=== PATIENT | female | born 1945 | race Caucasian/White ===

== ENCOUNTER 2017-06-26 15:01 | Emergency (ER) | payer MEDICARE, OTHER ==
[~2017-06-26] VITALS: Ht 162.6 cm; Wt 68.9 kg
[~2017-06-26 15:01] MED LIST: ACET-1467 PO; BONIVA; DICY20TA11 PO; FLUT16SP NS; LORA0.5T PO; MERC50TA PO; OMEGA 3 PO; OMEP40CA37 PO; PRED20TA PO; REMICADE; VITAMIN D PO
[2017-06-26] MEDS ORDERED: IV NORMAL SALINE 1000 ML BAG IV ONE (15:30)
[2017-06-26 15:51] LABS: BASOPHILS # (AUTO) 0.1 K/uL (0.0-8.0); BASOPHILS % (AUTO) 2.2 % (0.0-2.0); EOSINOPHILS # (AUTO) 0.1 K/uL (0.0-0.7); EOSINOPHILS % (AUTO) 1.2 % (0.0-7.0); HEMATOCRIT 35.8 % (37-47); HEMOGLOBIN 11.9 G/DL (12.0-16.0); LYMPHOCYTES # (AUTO) 0.3 K/UL (0.8-4.8); LYMPHOCYTES % (AUTO) 6.8 % (20.5-51.5); MEAN CORPUSCULAR HEMOGLOBIN 32.3 UUG (27.0-31.0); MEAN CORPUSCULAR HGB CONC 33 g/dL (32.0-37.0); MEAN CORPUSCULAR VOLUME 97.1 FL (81.0-99.0); MONOCYTES # (AUTO) 0.5 K/UL (0.1-1.30); MONOCYTES % (AUTO) 12.7 % (0.0-11.0); NEUTROPHILS # (AUTO) 3.2 K/UL (1.8-8.9); NEUTROPHILS % (AUTO) 77.1 % (38.5-71.5); PLATELET COUNT (AUTO) 242 K/UL (150-450); RED BLOOD CELL COUNT(AUTO) 3.68 MIL/UL (4.2-5.4); WHITE BLOOD COUNT (AUTO) 4.2 K/UL (4.0-11.2)
[2017-06-26 15:53] LABS: CREATININE 1.1 mg/dL (0.6-1.3); POTASSIUM 3.8 mmol/L (3.5-5.1)
[2017-06-26 15:57] LABS: *BILIRUBIN,URIN NEGATIVE (NEGATIVE); *BLOOD, URINE 2+ (NEGATIVE); *COLOR,URINE YELLOW (YELLOW); *KETONES,URINE NEGATIVE (NEGATIVE); *UROBILINOGEN,URINE 0.2 E.U./dl (NORMAL); LEUKOCYTE ESTERASE ,URINE NEGATIVE (NEGATIVE); NITRITE, URINE NEGATIVE (NEGATIVE); PH,URINE 5.5 (5.0-8.0); UGLUCOSE NEGATIVE (NEGATIVE)
[2017-06-26 16:09] LABS: BILIRUBIN,DIRECT 0.2 mg/dL (0.0-0.2); BILIRUBIN,TOTAL 0.7 mg/dL (0.2-1.0); TOTAL PROTEIN, SERUM 7.7 g/dL (6.4-8.2)
[2017-06-26 16:12] LABS: *CLARITY,URINE SLIGHTLY HAZY (CLEAR); *PROTEIN,URINE 3+ (NEGATIVE)
[2017-06-26 16:13] LABS: BACTERIA,URINE FEW /HPF (NONE SEEN); MUCUS,URINE MANY /LPF (0-FEW); SQUAMOUS EPITHELIAL CELL,UR FEW /HPF (NONE SEEN); WBC,URINE 0-3 /HPF (0-3)
[2017-06-26 16:19] LABS: BAND % (MANUAL) 15 % (0-10); EOSINOPHILS % (MANUAL) 1 % (0-8); LYMPHOCYTES % (MANUAL) 5 % (20-40); MONOCYTES % (MANUAL) 10 % (2-10); NEUTROPHILS % (MANUAL) 69 % (42-75)
[2017-06-26] MEDS ORDERED: GENTAMICIN SULFATE INJ 80 MG in IV DEXTROSE 5% 100 ML IV ONE (16:45)
[2017-06-26] MEDS ORDERED: CEFTRIAXONE 1 G in IV DEXTROSE 5% 50 ML IV ONE (16:45)
[2017-06-26] MEDS ORDERED: GENTAMICIN SULFATE 80 MG/2 ML VIAL ONE ×2 (17:00)
[2017-06-26] MEDS ORDERED: CEFTRIAXONE 1 G VIAL ONE ×2 (17:00)
--- NOTE | 2017-06-26 18:21 | NUR ---
Patient discharged to home in stable conditon. Written and verbal after care instructions given. Patient verbalizes understanding of instructions.pt says feels better. pt accompaneid by daughter. pt walks in steady gait.
[2017-06-26 18:22] VITALS: BP 101/71
== END 2017-06-26 18:24 | disposition home or self-care (01) ==
LOC: ER 15:05
DX: K50.90 Crohn's disease, unspecified, without complications (principal); N28.89 Other specified disorders of kidney and ureter; Z88.6 Allergy status to analgesic agent; I70.0 Atherosclerosis of aorta; K80.20 Calculus of gallbladder without cholecystitis without obstruction
CPT/HCPCS: 36415; 70030-TC; 71010; 83605; 85025; 85730; 87040; 87086; 93005; A4663; J0696; J1580; J7030; J7060

== ENCOUNTER 2017-10-01 21:30 | Emergency (ER) | payer MEDICARE, OTHER ==
[~2017-10-01] VITALS: Ht 162.6 cm; Wt 68.0 kg
[2017-10-01] MEDS ORDERED: DICY10CA13 PO (22:14)
[2017-10-01] MEDS ORDERED: IV NORMAL SALINE 1000 ML BAG IV ONE (22:15)
[2017-10-01] MEDS ORDERED: PREG25CA (22:16)
[2017-10-01] MEDS ORDERED: CELE200C (22:16)
[2017-10-01 22:56] LABS: CREATININE 1.7 mg/dL (0.6-1.3); POTASSIUM 3.6 mmol/L (3.5-5.1)
[2017-10-01 22:57] LABS: BASOPHILS # (AUTO) 0.4 K/uL (0.0-8.0); BASOPHILS % (AUTO) 2.7 % (0.0-2.0); EOSINOPHILS # (AUTO) 0.2 K/uL (0.0-0.7); EOSINOPHILS % (AUTO) 1.7 % (0.0-7.0); HEMATOCRIT 26.2 % (37-47); HEMOGLOBIN 8.6 G/DL (12.0-16.0); LYMPHOCYTES # (AUTO) 0.8 K/UL (0.8-4.8); LYMPHOCYTES % (AUTO) 5.9 % (20.5-51.5); MEAN CORPUSCULAR HEMOGLOBIN 31.8 UUG (27.0-31.0); MEAN CORPUSCULAR HGB CONC 33 g/dL (32.0-37.0); MEAN CORPUSCULAR VOLUME 96.2 FL (81.0-99.0); MONOCYTES # (AUTO) 0.8 K/UL (0.1-1.30); MONOCYTES % (AUTO) 6.1 % (0.0-11.0); NEUTROPHILS # (AUTO) 10.9 K/UL (1.8-8.9); NEUTROPHILS % (AUTO) 83.6 % (38.5-71.5); RED BLOOD CELL COUNT(AUTO) 2.72 MIL/UL (4.2-5.4); WHITE BLOOD COUNT (AUTO) 13.1 K/UL (4.0-11.2)
[2017-10-01 23:02] LABS: BILIRUBIN,DIRECT 0.2 mg/dL (0.0-0.2); BILIRUBIN,TOTAL 0.5 mg/dL (0.2-1.0)
[2017-10-01 23:15] LABS: PLATELET COUNT (AUTO) 1220 K/UL (150-450)
[2017-10-01 23:18] LABS: LYMPHOCYTES % (MANUAL) 11 % (20-40); MONOCYTES % (MANUAL) 4 % (2-10); NEUTROPHILS % (MANUAL) 85 % (42-75)
[2017-10-02 00:33] LABS: *BILIRUBIN,URIN NEGATIVE (NEGATIVE); *BLOOD, URINE Trace-lysed (NEGATIVE); *CLARITY,URINE CLEAR (CLEAR); *COLOR,URINE YELLOW (YELLOW); *KETONES,URINE NEGATIVE (NEGATIVE); *PROTEIN,URINE 1+ (NEGATIVE); *UROBILINOGEN,URINE 0.2 E.U./dl (NORMAL); LEUKOCYTE ESTERASE ,URINE NEGATIVE (NEGATIVE); NITRITE, URINE NEGATIVE (NEGATIVE); UGLUCOSE NEGATIVE (NEGATIVE)
[2017-10-02 00:36] LABS: BACTERIA,URINE NONE SEEN /HPF (NONE SEEN); RBC,URINE 0-3 /HPF (0-3); SQUAMOUS EPITHELIAL CELL,UR NONE SEEN /HPF (NONE SEEN); WBC,URINE 0-3 /HPF (0-3)
[2017-10-02] MEDS ORDERED: ONDANSETRON 4 MG/2 ML VIAL IV ONE (00:45)
[2017-10-02] MEDS ORDERED: HYDROMORPHONE 1 MG/1 ML DISP.SYRIN IV ONE (00:45)
[2017-10-02] MEDS ORDERED: HYDROMORPHONE 2 MG/1 ML DISP.SYRIN ONE (00:51)
[2017-10-02] MEDS ORDERED: ONDANSETRON 4 MG/2 ML VIAL ONE (00:55)
[2017-10-02] MEDS ORDERED: VANCOMYCIN IV 1,000 MG in IV DEXTROSE 5% 250 ML IV ONE (01:00)
[2017-10-02] MEDS ORDERED: PIPERACILLIN SODIUM/TAZOBACTAM 3.375 G in IV DEXTROSE 5% 50 ML IV ONE (01:00)
[2017-10-02] MEDS ORDERED: CLINDAMYCIN PHOSPHATE IV 600 MG in IV DEXTROSE 5% 100 ML IV ONE (01:00)
--- NOTE | 2017-10-02 01:00 | NUR ---
[facility] requested surgical consultation, call placed to Dr. England who spoke with [facility] and requested that patient be returned to original surgeon.
--- NOTE | 2017-10-02 01:06 | NUR ---
Face sheet faxed to [facility]
[2017-10-02] MEDS ORDERED: CLINDAMYCIN PHOSPHATE 600 MG/4 ML VIAL ONE (01:07)
--- NOTE | 2017-10-02 01:08 | NUR ---
Call placed to Dr. Calderón's answering services, on-call (Dr. Ho) will be paged.
--- NOTE | 2017-10-02 01:16 | NUR ---
Dr. Ho accepts the patient, pending transfer information from [facility].
--- NOTE | 2017-10-02 01:22 | NUR ---
Patient to Radiology for VQ scan via gurney, Consent signed.
[2017-10-02] MEDS ORDERED: PIPERACILLIN/TAZOBACTAM/D5W 50 ML IV ONE (01:29)
--- NOTE | 2017-10-02 01:55 | NUR ---
[facility] speaking with Dr. Rey
--- NOTE | 2017-10-02 02:10 | NUR ---
Patient returned from Radiology, no acute distress noted.
--- NOTE | 2017-10-02 02:17 | NUR ---
Received call from [facility], Patient accepted by Dr. Rey, patient will be transfered by [facility] ambulance to room 214.
--- NOTE | 2017-10-02 02:22 | NUR ---
[facility] contacted for transportation to [facility]. ETA 30 min.
[2017-10-02] MEDS ORDERED: VANCOMYCIN IV 200 ML ONE (03:05)
--- NOTE | 2017-10-02 03:40 | NUR ---
Patient Tranfers to outside Facility Physician: Dr. Rey Location: [facility] TELE 214
== END 2017-10-02 03:40 | disposition short-term general hospital (02) ==
LOC: ER 21:31
DX: T81.4XXA Infection following a procedure, initial encounter (principal); L02.211 Cutaneous abscess of abdominal wall; J90 Pleural effusion, not elsewhere classified; K80.20 Calculus of gallbladder without cholecystitis without obstruction; Z88.6 Allergy status to analgesic agent
CPT/HCPCS: 36415; 71010; 74176; 78579; 80048; 80076; 81001; 83605; 83880; 84484; 85025; 85730; 87040 ×2; 87086; 93005; 96361; 96365; 96367; 96375; 99285; A4663; A9540; A9567; J1170; J2405; J2543; J3370; J3490; J7030; J7060; 70030-TC